=== PATIENT | female | born 1950 | race Caucasian/White ===

== ENCOUNTER 2020-08-06 12:56 | Emergency (ER) | payer OTHER ==
[~2020-08-06] VITALS: Ht 157.5 cm; Wt 127.0 kg
[2020-08-06 13:00] VITALS: BP_SYST 140
--- NOTE | 2020-08-06 13:00 | NUR ---
BROUGHT INTO TRIAGE TENT AND TRIAGED. AWAITING ER BED
--- NOTE | 2020-08-06 13:07 | NUR ---
PT STATES SHE HAS A H/O HEMMORHOIDS AND POLYPS AND AT TIMES MAY HAVE LITTLE RECTAL BLEEDING. STATES H/H ARE LOW AND NEEDS BLOOD TRANSFUSION
[2020-08-06 13:54] LABS: HEMATOCRIT 23.4 % (36-48); MEAN CORPUSCULAR HEMOGLOBIN 18 pg (27-31)
[2020-08-06 14:01] LABS: MEAN CORPUSCULAR HGB CONC 28 % (32-36); MEAN CORPUSCULAR VOLUME 64 fL (79.0-98.0); PLATELET COUNT (AUTO) 447 K/uL (130-430); RED BLOOD CELL COUNT(AUTO) 3.68 MIL/uL (4.2-6.2); RED CELL DISTRIBUTION WIDTH 23.2 % (9.0-15.0); WHITE BLOOD COUNT (AUTO) 9.3 K/uL (4.8-10.8)
--- NOTE | 2020-08-06 14:02 | NUR ---
DR CHADWICK OUT TO TENT FOR EVALUATION
[2020-08-06 14:10] LABS: HEMOGLOBIN 6.7 g/dL (12.0-16.0)
[2020-08-06 14:15] LABS: ANION GAP 10 (5-15); CALCIUM 7.9 mg/dL (8.4-11.0); CHLORIDE 105 mmol/L (98-107); CREATININE 1.51 mg/dL (0.55-1.30); GLUCOSE 183 mg/dL (70-99); POTASSIUM 3.9 mmol/L (3.5-5.1); SODIUM SERUM 139 mmol/L (136-145); UREA NITROGEN, BLOOD 27 mg/dL (8-21)
[2020-08-06 14:22] LABS: INR 1.1 (0.8-1.2); PROTHROMBIN TIME 10.8 SECS (9.5-12.5)
[2020-08-06 14:30] LABS: ALANINE AMINOTRANSFERASE 27 U/L (12-78); ALBUMIN 2.5 g/dL (3.4-4.8); ASPARTATE AMINOTRANSFERASE 31 U/L (10-37); TOTAL BILIRUBIN 0.3 mg/dL (0.0-1.0)
--- NOTE | 2020-08-06 15:05 | NUR ---
PT TO [facility] BED FOR EVALUATION
--- NOTE | 2020-08-06 15:20 | NUR ---
# 20 gauge angiocath placed to RIGHT WRIST. Use of asceptic technique. Opsite placed over site. Blood return noted. Blood for lab drawn from site. Flushed with 10 cc of normal saline. No evidence of infiltration noted. Patient tolerated well.
--- NOTE | 2020-08-06 15:40 | NUR ---
O2 SAT ON RA WAS 89%. pLACED ON 2L O2. CURRENT O2 SAT IS 95%.
[2020-08-06 16:09] LABS: LYMPHOCYTES % (MANUAL) 5 % (20-46); MONOCYTES % (MANUAL) 2 % (0-11)
[2020-08-06 16:10] LABS: BASOPHILS % (MANUAL) 0 % (0-2); EOSINOPHILS % (MANUAL) 4 % (0-7)
--- NOTE | 2020-08-06 16:28 | NUR ---
BLOOD BANK SENT TO THE LAB. BLOOD CONSENT SIGNED BY THE PT
--- NOTE | 2020-08-06 17:22 | NUR ---
PT GETTING A SECOND TYPE IN SCREEN D/T ANTIBOTIES.
--- NOTE | 2020-08-06 18:00 | NUR ---
Consent signed per PT agreeing to administration of blood. Blood has been type and crossmatched. Blood sent from blood bank. Information on unit of blood checked against patient wristband at bedside by two nurses. All information matches. Patient or responsible constitution party informed of potential complications associated with blood transfusion. Informed of possible transfusion reaction symptoms. Aware of need to notify nurse at once of itching, shortness of breath, flushing, feeling of impending doom, or other symptoms not previously present. Vital signs taken within 5 minutes prior to initiation of transfusion. RN will remain with patient for first 15 minutes of transfusion at which time vital signs will be re-assessed.
--- NOTE | 2020-08-06 19:20 | NUR ---
CARE ENDORSED TO TUNDE BASS
--- NOTE | 2020-08-06 19:23 | NUR ---
Received report from KALI Franco.
--- NOTE | 2020-08-06 20:06 | NUR ---
Continue blood transfusion. No reaction.
--- NOTE | 2020-08-06 20:33 | NUR ---
Blood transfusion finished, no allergy reaction.
--- NOTE | 2020-08-06 21:15 | NUR ---
Blood for labwork drawn from [employer]. Patient tolerated well.
[2020-08-06 21:31] LABS: HEMATOCRIT 28.9 % (36-48); HEMOGLOBIN 8.2 g/dL (12.0-16.0)
--- NOTE | 2020-08-06 22:44 | NUR ---
Patient given written and verbal discharge instructions and verbalizes understanding. ER MD discussed with patient the results and treatment provided. Patient in stable condition. ID arm band removed. IV catheter removed intact and dressing applied, no active bleeding. No Rx given. Patient educated on pain management and to follow up with PMD. Pain Scale 0/10. Opportunity for questions provided and answered.
[2020-08-06 22:45] VITALS: BP_SYST 151
== END 2020-08-06 22:45 | disposition home or self-care (01) ==
LOC: SED 12:56
DX: D64.9 Anemia, unspecified (principal)
CPT/HCPCS: 36415; 36430; 80048; 80053; 85007; 85018; 85027; 85610; 85730; 86886; 86900; 86901; 86920; 99285; J7040; P9021